=== PATIENT | female | born 1960 | race Caucasian/White ===

== ENCOUNTER 2017-10-21 06:17 | Inpatient (IN) ==
[~2017-10-21 06:17] MED LIST: Bacitracin 50,000 UNIT, Polymyxin B Sulfate 500,000 UNIT, Sodium Chloride IRRigation 1,... IR ONE
[2017-10-21] MEDS ORDERED: Clindamycin 900 MG/50 ML 900 MG/50 ML IV.SOLN IVPB ONE (06:30)
[2017-10-21] MEDS ORDERED: Albuterol 2.5 MG/3 ML NEBULIZER IH ONE (06:33)
[2017-10-21] MEDS ORDERED: Albuterol 2.5 MG/3 ML NEBULIZER ONE (06:35)
[2017-10-21] MEDS ORDERED: Ringers Solution, Lactated 1,000 ML IVC SCH (06:45)
[2017-10-21] MEDS ORDERED: Plasma-Lyte A (PH 7.4) 1,000 ML IVC SCH (06:45)
--- NOTE | 2017-10-21 06:58 | History & Physical Report ---
Date of Encounter: 10/21/17 Time of Encounter: 06:57 24 Hour HP Update - Instructions Instructions: If the History and Physical is less than 30 days old and was completed prior to A.M. admission and or procedure and has NOT been updated on calendar day of procedure please complete this update prior to performing procedure. - Update Patient reports changes in Medical Condition: No Changes in examination, assessment, or condition: No Changes in Medication: No Preop tests/diagnostics Reviewed: Yes Pre-Op MRSA Screen: Negative Surgery Remains Indicated: Yes Consent for Planned Operative Procedure(s) Verified: Yes - Pre-Operative Checklist Preoperative Checklist Indicated: No Prophylactic Antibiotic Ordered: Yes Home Medications Include Beta Vaishali: No Beta Vaishali Taken Today (Day of Surgery): No Beta Vaishali Taken Yesterday (Day Prior to Surgery): No Is VTE Prophylaxis Indicated?: Yes
[2017-10-21] MEDS ORDERED: Lidocaine -MPF 2% 2 ML VIAL ONE (07:16)
[2017-10-21] MEDS ORDERED: *HR* FentaNYL (PF) 100 MCG/2 ML VIAL ONE (07:16)
[2017-10-21] MEDS ORDERED: *HR* Propofol 200 MG/20 ML VIAL IVP ONE (07:16)
[2017-10-21] MEDS ORDERED: Dexamethasone 4 MG/ML VIAL ONE (07:16)
[2017-10-21] MEDS ORDERED: Ketorolac 30 MG/ML VIAL ONE (07:16)
[2017-10-21] MEDS ORDERED: *HR* Midazolam HCl 2 MG/2 ML VIAL ONE (07:16)
[2017-10-21] MEDS ORDERED: *HR* Rocuronium Bromide 50 MG/5 ML VIAL ONE (07:16)
[2017-10-21] MEDS ORDERED: Ondansetron 4 MG/2 ML VIAL ONE (07:16)
[2017-10-21] MEDS ORDERED: ALPRAZolam 1 MG TABLET PO ONE (07:19)
[2017-10-21] MEDS ORDERED: *HR* Methadone 10 MG TABLET PO ONE (07:19)
--- NOTE | 2017-10-21 07:34 | Anesthesia Evaluation PreOp ---
Date of Encounter: 10/21/17 Time of Encounter: 07:34 - Past History Planned Operation: PLIF L3-L5 Cardiac History: Denies any Significant Hx Pulmonary History: Smoker, COPD GRAY TENDER History: Denies Any Significant HX, Other (SEVERE ANXIETY, PANIC ATTACKS) Other Medical History: Denies Any Significant HX Anesthesia History: No Prior Anesthetic Complications, Past Anesthesia Alcohol Use: none Drug use: none Medications and Allergies ALPRAZolam [Xanax 1 MG Tablet] 1 mg PO QID PRN 12/13/15 [History] Budesonide/Formoterol 160/4.5 [Symbicort 160/4.5] 2 puff IH BIDR 12/13/15 [ History] Desmopressin Acetate [Ddavp] 0.2 mg PO DAILY 12/13/15 [History] Duloxetine HCl [Cymbalta] 90 mg PO DAILY 12/13/15 [History] Montelukast [Singulair] 10 mg PO DAILY 12/13/15 [History] Tiotropium [Spiriva] 18 mcg IH HS 12/13/15 [History] Albuterol Sulfate [Albuterol Inhaler] 2 puff IH Q4-6H PRN 10/21/17 [History] Amitriptyline [Elavil] 50 mg PO HS 10/21/17 [History] Aripiprazole [Abilify] 30 mg PO DAILY 10/21/17 [History] Gabapentin [Neurontin] 600 mg PO TID 10/21/17 [History] Mirabegron [Myrbetriq] 50 mg PO DAILY 10/21/17 [History] lamoTRIgine [Lamictal] 50 mg PO BID 10/21/17 [History] 3 Allergy/AdvReac Type Severity Reaction Status Date / Time cephalexin [From Keflex] Allergy Hives Verified 10/21/17 07:17 rizatriptan [From Maxalt] AdvReac Flushing Verified 10/21/17 07:17 sumatriptan [From Imitrex] AdvReac Flushing Verified 10/21/17 07:17 - Meds/Allergy Pre-op Review Medications Reviewed: Yes Allergies Reviewed: Yes Beta Blockers on Current Med List: No Anesthesia Results - Labs 10/13/2017: K 4.0 Cr 0.84 Hb 13.2 Plt 330 Anesthesia Exam O2 Sat Height 1.57 m Weight 62.142 kg BMI 25 Vital Signs Resp BP Pulse Ox 18 122/73 95 10/21/17 06:43 10/21/17 06:43 10/21/17 06:43 NPO (# of Hours): >8 - HEENT Mallampati: II Teeth: Edentulous Denture Type: Upper: Complete - GRAY TENDER LOC: Oriented (Anxious) - Cardiac Rhythm: Regular - Pulmonary Breath Sounds: bilateral Clear Anesthesia Assess/Plan ASA Score: 3 Modified Vadito Scale for Level of Consciousness: Anixous, agitated or restless Anesthetic Plan: General Monitoring Plan: Standard Monitors, A-Line (Possible) Recovery Plan: PACU Anes Supervising Prov Stmt: Patient informed and consented. Risks, benefits, and alternatives discussed. Patient wishes to proceed.
[2017-10-21] MEDS ORDERED: *HR* PHENYLEPHRINE 1,000 MCG/10 ML SYRINGE IVP ONE (08:00)
[2017-10-21] MEDS ORDERED: *HR* Phenylephrine 10 MG/ML VIAL ONE (09:32)
[2017-10-21] MEDS ORDERED: *HR* Morphine 10 MG/ML VIAL ONE (10:22)
[2017-10-21] MEDS ORDERED: *HR* FentaNYL (PF) 100 MCG/2 ML VIAL IVP PRN (10:25)
[2017-10-21] MEDS ORDERED: Albuterol 2.5 MG/3 ML NEBULIZER IH PRN (10:25)
[2017-10-21] MEDS ORDERED: *HR* Promethazine 25 MG/ML VIAL IVP PRN (10:25)
[2017-10-21] MEDS ORDERED: *HR* OxyCODONE Immed Rel 5 MG TABLET PO PRN (10:25)
[2017-10-21] MEDS ORDERED: *HR* Midazolam HCl 2 MG/2 ML VIAL IVP PRN (10:25)
[2017-10-21] MEDS ORDERED: Neostigmine Methylsulfate 3 MG/3 ML SYRINGE ONE (10:36)
--- NOTE | 2017-10-21 11:01 | Orthopedic Operative Note ---
Date of procedure: 10/21/17 Pre-op diagnosis: Lumbar stenosis, degenerative scoliosis, lumbar radiculopathy Post-op diagnosis: same Operation/Findings: Posterior lumbar interbody fusion L3-L5: The patient successfully underwent general endotracheal anesthesia. The patient was given antibiotics prior to the start of the procedure. Compression boots and stockings were used for deep vein thrombosis prophylaxis. A Mcdowell catheter was placed. Leads for neuro monitoring were placed on the upper and lower extremities. This included the cranium. The neuro monitoring personnel confirmed there were satisfactory readings prior to the start of the procedure. The patient was turned prone on the Renny table. The back was prepped and draped in the usual sterile fashion. An incision was was marked and centered over the involved L3-L5 levels in the mid line. The incision was deepened through the lumbar fascia. Bovie cautery and Hawthorne elevators were used to reflect the paraspinal musculature at the lateral extent of the transverse processes of the involved L3 -L5 levels. Yulissa clamps were placed over the L3 and L4 spinous processes. An intraoperative lateral fluoroscopy graft was obtained. A conversation was held between the surgeon and radiologist and both confirmed we had the correct operative levels. We then placed pedicle screws in standard fashion with the aid of fluoroscopy and anatomic landmarks. Briefly a starter awl was used. A gearshift was subsequently used to enter the test pilot hole via a transpedicular route into the vertebral body. The test pilot hole was tapped with an undersized instrument, and subsequently six 6.5 x 40 mm pedicle screws were placed bilaterally at the indicated L3, L4, and L5 levels. The screws were tested with the aid of the neurologic monitoring staff via pedicle screw stimulation. All reading suggested there was no significant cortical wall breech. The screws were also evaluated fluoro- graphically and appeared to be in satisfactory position. We then turned our attention to the decompression portion of the procedure. We removed the supraspinous and interspinous ligaments and subsequently the insertion of the ligamentum flavum on the undersurface of the proximal L4 lamina was dislodged with a curette. We then removed the ligamentum flavum as well as undercut the L4-L5 facets at this level to decompress the lateral recesses. We also performed a L4 laminectomy. We moved proximally to the L3-4 level and again decompressed this level by removing hypertrophied ligamentum flavum, undercutting the L3-4 facets, and performing an L3 laminectomy. After the decompression, which was over and above that which was required to place the interbody graft, the foramen and traversing roots at L3-4 and L4-5 levels were found to be free and patent. We also took part of the medial facets at these levels in order to aid in the decompression. We then protected the neural elements including the thecal sac and traversing nerve root on the right at L4-5 with a dural retractor. We made an annulotomy into the L4-L5 disc space and then removed entire disc material using Pituitary instruments. We trialed various size grafts after the endplates were prepared for graft insertion. A 10 x 26 enter body graft fit well within the L4-L5 disc space. We obtained some bone from the right posterior superior iliac spine through us a separate incision and combined with this with the bone which we had saved from the laminectomy of L3 and L4 portion of the procedure. This autograft bone was first placed in the anterior portion of the L4-L5 disc space and additional bone was placed within the interbody graft spacer. We then placed the interbody graft spacer obliquely across the L4-L5 disc space towards the midline while protecting the neural elements with a root retractor. When the graft was found to be in satisfactory position the binder caser was removed. We then copiously irrigated the wound. We then decorticated the L3, L4, and L5 transverse processes as well as the L3-4 and L4-5 facet joints of the involved levels to aid in the posterolateral fusion. We placed autograft bone in the lateral gutters over these regions. We then placed rods within the screw heads of the involved L3, L4, and L5 levels and first locked the distal screws and then subsequently locked the proximal screws so as to improve and reduce the spondylolisthesis previously seen. We then closed the wound in layers with 1 Vicryl for the fascia, 2-0 Vicryl. Subcutaneous tissue, and Dermabond was used for skin closure. Sterile dressings were placed over the wound. The patient was turned supine on a hospital bed and extubated. All sponge instruments and needle counts were correct at the end of the procedure. The patient tolerated the procedure well without complications. Anesthesia: GETA Surgeon: Alexey Stone Jr Was there an dental assistant medical assistant present: No Estimated blood loss (cc): 200 Specimen: None Condition: stable Disposition: PACU
[2017-10-21] MEDS ORDERED: Calcium Gluconate 2,000 MG in 0.9 % Sodium Chloride 100 ML IVPB ONE (11:57)
[2017-10-21] MEDS ORDERED: Naloxone 0.4 MG/ML INJ IVP PRN (12:31)
[2017-10-21] MEDS ORDERED: Ondansetron 4 MG/2 ML VIAL IVP PRN (12:31)
[2017-10-21] MEDS ORDERED: *HR* OxyCODONE Immed Rel 5 MG TABLET PO SCH (12:31)
--- NOTE | 2017-10-21 12:54 | Anesthesia Evaluation Post Op ---
Date of Encounter: 10/21/17 Time of Encounter: 12:35 Notes: Patient's vital signs have been reviewed. Patient is stable postoperatively and has adequately recovered from anesthesia. Patient is determined to have stable airway patency and respiratory function including respiratory rate and oxygen saturation. Patient has a stable heart rate, blood pressure and adequate hydration. Patients mental status is acceptable. Patients temperature is appropriate. Pain and nausea are adequately controlled. - Discharge PostOp Status: Transfer Patient to floor
[2017-10-21] MEDS: Ringers Solution, Lactated 1,000 ML IVC SCH (13:43)
[2017-10-21] MEDS: Clindamycin 600 MG/50 ML 600 MG/50 ML IV.SOLN IVPB SCH (15:07)
[2017-10-21] MEDS: ALPRAZolam 1 MG TABLET PO PRN (16:12)
[2017-10-21] MEDS: *HR* OxyCODONE Immed Rel 5 MG TABLET PO PRN (18:47)
[2017-10-21] MEDS: lamoTRIgine 25 MG TABLET PO SCH (20:04)
[2017-10-21] MEDS: Budesonide/Formoterol 160/4.5 MDI IH SCH (21:46)
[2017-10-22] MEDS: Clindamycin 600 MG/50 ML 600 MG/50 ML IV.SOLN IVPB SCH (00:52)
[2017-10-22] MEDS: *HR* OxyCODONE Immed Rel 5 MG TABLET PO PRN ×2 (00:52→06:09)
[2017-10-22] MEDS: Ringers Solution, Lactated 1,000 ML IVC SCH (00:53)
--- NOTE | 2017-10-22 08:11 | Orthopedics Progress Note ---
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 Stone for Lumbar stenosis, degenerative scoliosis, lumbar radiculopathy The patient c/o back pain. Admits to improvement in left leg symptoms. Notes weakness with right ankle motion. Admits to some numbness to both legs. Afebrile vital signs are stable. Incision is clean dry and intact. Mild weakness with dorsiflexion to right ankle otherwise, neurovascularly intact with regard to bilateral lower extremities. Fires all upper and lower extremity motor groups. Assessment :stable. Plan: mobilize with PT, continue analgesics, discharge planning - pending PT evaluation radiographs to be done tomorrow Objective Vital signs: Vital Signs Temp Pulse Resp BP Pulse Ox 10/22/17 06:46 98.2 F 101 16 103/68 95 10/22/17 04:14 98.6 F 108 14 100/61 93 10/22/17 00:32 98.1 F 101 17 113/77 92 10/21/17 21:50 16 96 10/21/17 21:10 98.4 F 111 16 104/59 94 10/21/17 20:09 93 10/21/17 19:28 98.9 F 112 16 95/54 93 10/21/17 16:10 97.9 F 125 15 101/61 91 10/21/17 15:02 98.3 F 110 15 100/67 96 10/21/17 13:44 98.0 F 108 12 91/58 95 10/21/17 13:10 98.3 F 116 15 107/70 95 10/21/17 12:40 98.3 F 115 14 105/68 96 04/24/18 12:29 97.1 F L 116 16 99/71 93 10/21/17 12:19 120 16 103/72 93 10/21/17 12:09 97.3 F L 122 16 107/79 93 10/21/17 11:59 124 16 109/69 95 10/21/17 11:49 123 16 115/71 94 10/21/17 11:39 97.3 F L 128 16 119/81 94 10/21/17 11:29 130 16 100/62 96 10/21/17 11:19 96 12 98/66 99 10/21/17 11:09 96.8 F L 95 12 91/57 99 Intake and Output 10/21/17 10/22/17 10/22/17 23:59 07:59 15:59 Intake Total 1000 / 1000 0 / 0 Output Total 400 / 400 400 / 400 Balance 600 / 600 -400 / -400 Intake: IV Fluids 1000 / 1000 Lactated Ringers 1,000 ML @ 100 1000 / 1000 mls/hr IVC .Q10H JAY Rx#: [id number] Oral 0 / 0 Output: Catheter 400 / 400 400 / 400 - VTE Documentation of Mechanical Device: Intermittent pneumatic compression device Consult Discharge Plan - Plan Referrals: Soheila Newell, PhD [Primary Care Provider] -
[2017-10-22] MEDS: *HR* HYDROcodone/Acet 5/325 mg TABLET PO PRN ×3 (08:40→17:55)
[2017-10-22] MEDS: lamoTRIgine 25 MG TABLET PO SCH ×2 (08:41→20:27)
[2017-10-22] MEDS: ARIPiprazole 10 MG TABLET PO SCH (08:41)
[2017-10-22] MEDS: (Mirabegron [Myrbetriq] 50 MG) PO SCH (08:41)
[2017-10-22] MEDS: Budesonide/Formoterol 160/4.5 MDI IH SCH ×2 (09:40→23:04)
[2017-10-22] MEDS: Tiotropium 18 MCG inhalation IH SCH (09:41)
[2017-10-22] MEDS: ALPRAZolam 1 MG TABLET PO PRN ×2 (11:13→19:14)
[2017-10-23] MEDS: *HR* OxyCODONE Immed Rel 5 MG TABLET PO PRN ×5 (01:01→20:50)
[2017-10-23] MEDS: ARIPiprazole 10 MG TABLET PO SCH (07:23)
[2017-10-23] MEDS: lamoTRIgine 25 MG TABLET PO SCH ×2 (07:24→20:50)
[2017-10-23] MEDS: (Mirabegron [Myrbetriq] 50 MG) PO SCH (07:24)
[2017-10-23] MEDS: ALPRAZolam 1 MG TABLET PO PRN (07:30)
[2017-10-23] MEDS: Budesonide/Formoterol 160/4.5 MDI IH SCH ×2 (07:54→20:26)
[2017-10-23] MEDS: Tiotropium 18 MCG inhalation IH SCH (07:54)
--- NOTE | 2017-10-23 12:34 | Orthopedics Progress Note ---
Date of Encounter: 10/23/17 Time of Encounter: 08:35 - Assessment and Plan (1) Status post lumbar spinal fusion Current Visit: Yes Status: Acute (2) Lumbar stenosis Current Visit: Yes Status: Chronic Qualifiers: Neurogenic claudication status: unspecified Qualified Code(s): M48.061 - Spinal stenosis, lumbar region without neurogenic claudication (3) Lumbar radiculopathy Current Visit: Yes Status: Chronic (4) Degenerative scoliosis Current Visit: Yes Status: Chronic (5) Focal motor deficit Current Visit: Yes Status: Chronic (6) History of laminectomy Current Visit: Yes Status: Chronic Subjective Principal diagnosis: Lumbar stenosis, degenerative scoliosis, lumbar radiculopathy Interval history: POD#2 Posterior lumbar interbody fusion L3-L5 on 10/21/[address] Stone for Lumbar stenosis, degenerative scoliosis, lumbar radiculopathy The patient c/o back pain. Admits to improvement in left leg symptoms. Notes weakness with right ankle motion - improved from yesterday, now full ROM, mild weakness continues to be noted. Admits to some numbness to both legs - states much improved today. Afebrile vital signs are stable. Incision is clean dry and intact. Mild weakness with dorsiflexion to right ankle otherwise, neurovascularly intact with regard to bilateral lower extremities. Fires all upper and lower extremity motor groups. Assessment :stable. Plan: mobilize with PT, continue analgesics as needed, discharge planning - Home with home health tomorrow 10/24 radiographs reviewed - stable and satisfactory hardware position Objective Vital signs: Vital Signs Temp Pulse Resp BP Pulse Ox 10/23/17 10:02 98.4 F 104 16 104/67 94 10/23/17 07:57 18 93 10/23/17 06:29 98.9 F 110 16 101/68 94 10/23/17 04:48 100.1 F H 122 17 99/64 93 10/23/17 00:09 99.9 F H 125 17 99/65 93 10/22/17 23:04 24 93 10/22/17 21:09 112 95 10/22/17 19:04 99.2 F 120 17 103/63 96 10/22/17 14:29 98.3 F 86 16 121/68 95 Intake and Output 10/22/17 10/23/17 10/23/17 23:59 07:59 15:59 Intake Total 290 / 290 360 / 360 240 / 240 Output Total 400 / 400 Balance -110 / -110 360 / 360 240 / 240 Intake: Oral 290 / 290 360 / 360 240 / 240 Output: Urine 400 / 400 Other: Meal Dinner Breakfast Percent of Meal Consumed 50% 50% # Urine Diapers 1 1 Weight 66.8 kg Patient Weight 10/23/17 23:59 Weight 66.8 kg - VTE Documentation of Mechanical Device: Intermittent pneumatic compression device Consult Discharge Plan - Plan Referrals: Soheila Newell, PhD [Primary Care Provider] -
[2017-10-23] MEDS: Acetaminophen 325 MG TABLET PO PRN (20:49)
[2017-10-24] MEDS: *HR* OxyCODONE Immed Rel 5 MG TABLET PO PRN ×4 (01:11→20:45)
[2017-10-24] MEDS: Budesonide/Formoterol 160/4.5 MDI IH SCH ×2 (07:59→20:57)
[2017-10-24] MEDS: Tiotropium 18 MCG inhalation IH SCH (08:00)
--- NOTE | 2017-10-24 08:56 | Discharge Summary ---
Orders not resulted at time of discharge: Pending orders 10/21/17 08:30 XR fluoroscopy <1 hr [XR] Routine 10/24/17 08:01 XR lumbar spine 2-3V [XR] Routine Date of Encounter: 10/24/17 Time of Encounter: 08:54 - Discharge Diagnosis (1) Status post lumbar spinal fusion Priority: Primary Status: Acute (2) Lumbar stenosis Priority: Primary Status: Chronic Qualifiers: Neurogenic claudication status: unspecified Qualified Code(s): M48.061 - Spinal stenosis, lumbar region without neurogenic claudication (3) Lumbar radiculopathy Priority: Secondary Status: Chronic (4) Degenerative scoliosis Priority: Secondary Status: Chronic (5) Focal motor deficit Priority: Secondary Status: Chronic (6) History of laminectomy Priority: Secondary Status: Chronic - Hospital Course Hospital course: Ms. Clay is a 56 year old female status post posterior lumbar interbody fusion L3-L5 on 10/21/[address] Stone for Lumbar stenosis, degenerative scoliosis, lumbar radiculopathy The patient had an uneventful postoperative course. Progressed from intravenous analgesic needs to oral analgesic needs only. Remained neurovascularly intact and mobilized satisfactorily. All intraoperative and postoperative radiographic studies were satisfactory. Patient is discharged with plan for rehabilitation and follow-up in 2 weeks post discharge on analgesic medication and patient's home medications. Time spent discussing smoking cessation with patient: 3 to 10 minutes - Time Spent with Patient Total time spent providing and/or coordinating discharge services: - Discharge Medications Prescriptions: OxyCODONE Immed Rel [Roxicodone 5 MG] 5 mg PO Q6H PRN 7 Days #28 tablet PRN Reason: Severe Pain Home Medications: ALPRAZolam [Xanax 1 MG Tablet] 1 mg PO TID PRN 12/13/15 [History] Budesonide/Formoterol 160/4.5 [Symbicort 160/4.5] 2 puff IH BIDR 12/13/15 [ History] Desmopressin Acetate [Ddavp] 0.4 mg PO HS 12/13/15 [History] Duloxetine HCl [Cymbalta] 60 mg PO DAILY 12/13/15 [History] Montelukast [Singulair] 10 mg PO DAILY 12/13/15 [History] Tiotropium [Spiriva] 18 mcg IH DAILY 12/13/15 [History] Albuterol Sulfate [Albuterol Inhaler] 2 puff IH Q4-6H PRN 10/21/17 [History] Amitriptyline [Elavil] 50 mg PO HS 10/21/17 [History] Aripiprazole [Abilify] 30 mg PO DAILY 10/21/17 [History] Gabapentin [Neurontin] 600 mg PO TID 10/21/17 [History] Mirabegron [Myrbetriq] 50 mg PO DAILY 10/21/17 [History] lamoTRIgine [Lamictal] 50 mg PO BID 10/21/17 [History] OxyCODONE Immed Rel [Roxicodone 5 MG] 5 mg PO Q6H PRN 7 Days #28 tablet [Rx] Allergies/Adverse Reactions: 3 Allergy/AdvReac Type Severity Reaction Status Date / Time cephalexin [From Keflex] Allergy Hives Verified 10/21/17 07:17 rizatriptan [From Maxalt] AdvReac Flushing Verified 10/21/17 07:17 sumatriptan [From Imitrex] AdvReac Flushing Verified 10/21/17 07:17 Date of admission: 10/21/17 13:42 Primary care physician: Soheila Newell Consults: 10/21/17 12:31 Consult to Occupational Therapy [CONS] Routine Comment: Evaluate, develop and implement POC Reason for Consult: Postoperative rehabilitation Does patient have active BEDREST order?: No Is patient medically & hemodynamically stable?: Yes Patient assessed for mobility or mobilized this visit?: No Consult to Physical Therapy [CONS] Routine Comment: Evaluate, develop and implement POC Reason for Consult: Postoperative rehabilitation Does patient have active BEDREST order?: No Is patient medically & hemodynamically stable?: Yes Patient assessed for mobility or mobilized this visit?: No Consult to Spine Navigator [CONS] [CONS] Routine 10/22/17 12:45 Consult to Space Sciences Director [CONS] Routine Reason for SW Consult: discharge planning - VTE Documentation of Mechanical Device: Intermittent pneumatic compression device - Impressions ITS Impressions Lumbar Spine X-Ray 10/21/17 08:30 IMPRESSION: Postoperative changes status post L3-L5 fusion. D/ / Santana Roland / Santana Roland Interpreting Provider: Santana Roland Lumbar Spine X-Ray 10/22/17 12:55 IMPRESSION: L3, L4-L5 laminectomies, L4-5 discectomy with spacer and L3-5 transpedicular spinal fixation unchanged compared with yesterday's radiograph. D/ / Abelardo De León / Abelardo De León Interpreting Provider: Abelardo De León - Patient Status Disposition: Home Health Service Condition: Good Functional capacity at discharge: uses cane/walker Overall status at discharge: patient is progressing back to baseline - Discharge Instructions Follow Up With: Soheila Newell, PhD [Primary Care Provider] - Amina Quintanilla PAC [Physician Nocturnist] - 11/04/17 11:15 am - Diet and Activity Activity: as per physical therapy Diet: advance to your usual diet
[2017-10-24] MEDS: ARIPiprazole 10 MG TABLET PO SCH (09:13)
[2017-10-24] MEDS: lamoTRIgine 25 MG TABLET PO SCH ×2 (09:14→20:46)
[2017-10-24] MEDS: (Mirabegron [Myrbetriq] 50 MG) PO SCH (09:15)
[2017-10-24] MEDS: ALPRAZolam 1 MG TABLET PO PRN (12:13)
[2017-10-24 13:08] LABS: Basophils % 0.3 %; Eosinophils # 0.3 K/mcL (0.0-0.6); Eosinophils % 2.7 %; Hematocrit 29.6 % (35.3-44.9); Hemoglobin 10.2 g/dL (11.5-15.4); Immature Granulocytes % 0.3 % (0-4); Lymphocytes # 1.7 K/mcL (0.6-4.6); Lymphocytes % 17.1 %; Mean Corpuscular HGB Conc 34.5 g/dL (31.6-35.5); Mean Corpuscular Hemoglobin 30.2 pg (28.0-33.3); Mean Corpuscular Volume 87.6 fL (83.0-100.0); Monocytes % 10.6 %; Neutrophils # 6.7 K/mcL (1.6-8.9); Platelet Count 292 K/mcL (140-400); Red Blood Count 3.38 M/mcL (3.82-4.97); Red Cell Distribution Width 14.3 % (11.5-14.5)
[2017-10-24 13:25] LABS: BUN/Creatinine Ratio 11 (6-26); Blood Urea Nitrogen 6 mg/dL (6-20); Calcium 8.7 mg/dL (8.6-10.3); Carbon Dioxide 27 mEq/L (23-29); Chloride 98 mEq/L (98-107); Glucose 104 mg/dL (70-105); Osmolality,Calculated 270 (280-300); Potassium 3.5 mEq/L (3.5-5.1); Sodium 131 mEq/L (136-145); eGFR For African Americans > 60 (> 60); eGFR For Non-African Americans > 60 (> 60)
[2017-10-24] MEDS ORDERED: Ibuprofen 600 MG TABLET PO PRN (16:51)
[2017-10-24] MEDS ORDERED: Ipratropium/Albuterol Neb 3 ML IH PRN (16:52)
--- NOTE | 2017-10-24 17:17 | Internal Medicine Consult Note ---
<Jacoby Leon - Last Filed: 10/24/17 17:54> Date of Encounter: 10/24/17 Time of Encounter: 16:30 - Assessment and plan (1) Tachycardia Current Visit: Yes Status: Acute Assessment and plan: Acute tachycardia. EKG shows electronic atrial pacemaker with incomplete RBBB and moderate ST depression. Continuous cardiac telemetry. Patient receiving 0.9 NS IV fluids 75 mL per hour. Will monitor via telemetry. Monitor fever and control w/Tylenol and Motrin. Pt. discussed w/Dr. Aaron who agrees w/plan of care. Pt. is moderate risk for further morbidity and complications d/t post- surgical status and sx of fever, tachycardia, and HTN. Pt. and f/u labs to be monitored closely. Inpatient. (2) Fever Current Visit: Yes Status: Acute Assessment and plan: Acute fever that is transient. Alternate Tylenol and Motrin for fever control. Blood cultures 2 ordered. Respiratory infection panel ordered. UA with reflex culture and micro-ordered. Will add abx coverage based on culture and panel results if appropriate. Qualifiers: Fever type: unspecified Qualified Code(s): R50.9 - Fever, unspecified (3) HTN (hypertension) Current Visit: Yes Status: Acute Assessment and plan: Acute HTN that is transient. Pt. does not currently take HTN medication. Hydralazine 10 mg IV push every 6 hours when necessary to be administered if SBP greater than 180 and/or DBP greater than 110. Qualifiers: Hypertension type: unspecified Qualified Code(s): I10 - Essential (primary ) hypertension (4) Status post lumbar spinal fusion Current Visit: Yes Status: Acute Assessment and plan: Acute status post-lumbar spinal fusion. Pt. to have f/u w/Dr. Stone. (5) Anemia Current Visit: Yes Status: Acute Assessment and plan: Acute anemia most likely d/t recent surgery. Will trend H/H Q6HR. Qualifiers: Anemia type: unspecified type Qualified Code(s): D64.9 - Anemia, unspecified (6) Hyponatremia Current Visit: Yes Status: Acute Assessment and plan: Acute hyponatremia w/sodium of 131. 0.9 NS IV fluids @ 75 mL/HR. Re-check sodium in a.m. labs. (7) Constipation Current Visit: Yes Status: Acute Assessment and plan: Acute constipation d/t pain medications. Colace and Miralax ordered. Monitor I& O. Qualifiers: Constipation type: drug induced constipation Qualified Code(s): K59.03 - Drug induced constipation (8) Overactive bladder Current Visit: Yes Status: Chronic Assessment and plan: Hx of overactive bladder. Continue pts. Myrbetriq. (9) Anxiety and depression Current Visit: Yes Status: Chronic Assessment and plan: Hx of chronic anxiety and depression. Continue patient's Lamictal, Cymbalta, Abilify, Elavil, and Xanax. (10) COPD (chronic obstructive pulmonary disease) Current Visit: Yes Status: Chronic Assessment and plan: Hx of chronic COPD w/asthma. Continue patient's inhalers and add DuoNeb's every 6 hours when necessary. Supplemental O2 with titration and SPO2 monitoring when necessary. Qualifiers: COPD type: emphysema Emphysema type: unspecified Qualified Code(s): J43.9 - Emphysema, unspecified (11) DVT prophylaxis Current Visit: Yes Status: Acute Assessment and plan: Bilateral SCDs on LEs for DVT prophylaxis. - Time Spent With Patient Total time spent is greater than 50% in coordination of care (as documented) at patient's floor/unit and/or counseling patient: 25 - 35 minutes Internal Medicine - CN: HPI - Data of Consult Patient: new to practice Requesting Physician: Alexey Stone Jr MD - Consult Narrative Reason for consult: Medical mgmt of fever, tachycardia, and HTN post-lumbar spinal fusion History of present illness: Ms. Clay is a 56 year old female w/PMH of COPD, overactive bladder, anxiety, and depression presents for Hospitalist consultation post-lumbar spinal fusion due to symptoms of tachycardia, hypertension, and fever which began yesterday, resolved, and returned again this morning. WBC 9.7. Patient reports SOB and constipation from pain medications but that she has no nausea, vomiting, diarrhea. Also denies headache, chest pain, changes in vision, palpitations, unusual bleeding, abdominal pain, dizziness, lightheadedness, pre-syncope, or syncope. Reports pain post-procedure but state that she has been ambulating and this is nothing she can't handle. Past Med Surg Social Fam HX - Past Medical History Source: patient, old records reviewed Medical history: asthma, COPD, other (Overactive bladder) Psychiatric history: anxiety, depression - Past Surgical History Surgical History: orthopedic, other (Lumbar spine fusion), other - Social History Smoking Status: Current every day smoker Packs per day: 1/2 Smokeless Tobacco Status: No Alcohol use: none Drug use: none Current living situation: Home Activity Level: Independent ambulation Recent Out of Country Travel Within the Last 8 Weeks: No Exposure or Possible Exposure to Illness During Travel: No - Family History Father History Unknown: Yes Adopted: Yes Mother History Unknown: Yes Adopted: Yes Brother Race: Family Member Ethnicity: Non- Living Status: Still Living Hx Family Medical Disorders: No Sister Race: Family Member Ethnicity: Non- Living Status: Still Living Hx Family Medical Disorders: No - Constitutional Constitutional: as per HPI, fever(s) - EENT Eyes: as per HPI Ears: as per HPI Nose, mouth and throat: as per HPI - Breasts Breasts: as per HPI - Cardiovascular Cardiovascular ROS IM: as per HPI, irregular heart rhythm (Tachycardia) - Respiratory Respiratory: as per HPI, dyspnea, dyspnea on exertion - Gastrointestinal Gastrointestinal: as per HPI, constipation - Genitourinary Genitourinary: as per HPI, urinary frequency Menstruation: as per HPI - Musculoskeletal Musculoskeletal ROS IM: as per HPI, back pain - Integumentary Integumentary IM: as per HPI - Neurological Neurological ROS: as per HPI - Psychiatric Psychiatric: as per HPI, anxiety, depression - Endocrine Endocrine IM: as per HPI - Hematologic/Lymphatic Hematologic/Lymphatic: as per HPI - Allergic/Immunologic Allergic/Immunologic: as per HPI Internal Medicine - CN: Meds ALPRAZolam [Xanax 1 MG Tablet] 1 mg PO TID PRN 12/13/15 [History] Budesonide/Formoterol 160/4.5 [Symbicort 160/4.5] 2 puff IH BIDR 12/13/15 [ History] Desmopressin Acetate [Ddavp] 0.4 mg PO HS 12/13/15 [History] Duloxetine HCl [Cymbalta] 60 mg PO DAILY 12/13/15 [History] Montelukast [Singulair] 10 mg PO DAILY 12/13/15 [History] Tiotropium [Spiriva] 18 mcg IH DAILY 12/13/15 [History] Albuterol Sulfate [Albuterol Inhaler] 2 puff IH Q4-6H PRN 10/21/17 [History] Amitriptyline [Elavil] 50 mg PO HS 10/21/17 [History] Aripiprazole [Abilify] 30 mg PO DAILY 10/21/17 [History] Gabapentin [Neurontin] 600 mg PO TID 10/21/17 [History] Mirabegron [Myrbetriq] 50 mg PO DAILY 10/21/17 [History] lamoTRIgine [Lamictal] 50 mg PO BID 10/21/17 [History] OxyCODONE Immed Rel [Roxicodone 5 MG] 5 mg PO Q6H PRN 7 Days #28 tablet [Rx] 3 Allergy/AdvReac Type Severity Reaction Status Date / Time cephalexin [From Keflex] Allergy Hives Verified 10/21/17 07:17 rizatriptan [From Maxalt] AdvReac [place]ushing Verified 10/21/17 07:17 sumatriptan [From Imitrex] AdvReac [place] Verified 10/21/17 07:17 Internal Medicine - CN: Exam - Constitutional Vitals: Temp Pulse Resp BP Pulse Ox 99.9 F H 109 18 106/67 93 10/24/17 16:18 10/24/17 16:18 10/24/17 16:18 10/24/17 16:18 10/24/17 16:18 General appearance IM: Present: cooperative, A&O X 3, pleasant, no acute distress, answers questions appropriately - Head Head exam: Present: atraumatic, normal inspection - Eye Eye exam: Present: PERRL, conjuntiva pink, sclera anicteric Pupils: Present: normal accommodation, PERRL - ENT ENT exam: Present: normal exam - Neck Neck exam general surgery: Present: normal inspection - Respiratory Respiratory exam: Present: CTAB - Cardiovascular Cardiovascular exam IM: Present: +S1, +S2, tachycardia - GI/Abdominal GI/Abdominal exam IM: Present: diminished bowel sounds, soft, no peritoneal signs - Rectal Rectal exam: Present: deferred - Additional comments: exam deferred. - Extremities Exam Extremities exam IM: Present: warm, radial pulses palpable and symmetrical - Neurological Exam Neurological exam: Present: alert, oriented X3, no focal deficits, strengths equal and symetr throughout - Psychiatric Psychiatric exam: Present: normal affect, normal mood - Skin Skin exam IM: Present: dry, intact Internal Medicine - CN: Reslt - Labs CBC & Chem 7: 10/24/17 17:08 10/24/17 12:46 Labs: Short CBC 10/24/17 Range/Units 12:46 WBC 9.7 (4.3-11.1) K/mcL Hgb 10.2 L (11.5-15.4) g/dL Hct 29.6 L (35.3-44.9) % Plt Count 292 (140-400) K/mcL Neutrophils # 6.7 (1.6-8.9) K/mcL BMP 10/24/17 12:46 Sodium 131 L Potassium 3.5 Chloride 98 Carbon Dioxide 27 BUN 6 Creatinine 0.56 L Glucose 104 Calcium 8.7 - EKG Data Prior EKG available for review: no EKG comments: 10/24/17 17:31 EKG dated 10/24/17 shows electronic atrial pacemaker, incomplete right bundle branch block, and moderate ST depression. - Impressions Impressions Lumbar Spine X-Ray 10/24/17 08:01 IMPRESSION: Stable alignment status post L3-L5 posterior fusion. No evidence of complication. D/ / Rainer Beck MD / Rainer Beck MD Interpreting Provider: Rainer Beck MD Chest X-Ray 10/24/17 11:53 IMPRESSION: Bibasilar airspace opacities, either secondary to atelectasis or pneumonia. D/ / Rainer Beck MD / Rainer Beck MD Interpreting Provider: Rainer Beck MD - Diagnostic Studies Chest x-ray Additional comments: Impressions Chest X-Ray 10/24/17 11:53 IMPRESSION: Bibasilar airspace opacities, either secondary to atelectasis or pneumonia. D/ / Rainer Beck MD / Rainer Beck MD Interpreting Provider: Rainer Beck MD Other Images Additional comments: Impressions Lumbar Spine X-Ray 10/24/17 08:01 IMPRESSION: Stable alignment status post L3-L5 posterior fusion. No evidence of complication. D/ / Rainer Beck MD / Rainer Beck MD Interpreting Provider: Rainer Beck MD Consult Discharge Plan - Plan Referrals: Amina Quintanilla PAC [Physician Liquid Sugar Fortifier] - 11/04/17 11:15 am Soheila Newell, PhD [Primary Care Provider] - Prescriptions: OxyCODONE Immed Rel [Roxicodone 5 MG] 5 mg PO Q6H PRN 7 Days #28 tablet PRN Reason: Severe Pain <Sharee Aaron O - Last Filed: 10/24/17 18:22> Date of Encounter: 10/24/17 - Time Spent With Patient Total time spent is greater than 50% in coordination of care (as documented) at patient's floor/unit and/or counseling patient: Internal Medicine - CN: HPI - Data of Consult Requesting Physician: Alexey Stone Jr MD - Consult Narrative History of present illness: Ms. Clay is a 56 year old female Internal Medicine - CN: Exam - Constitutional Vitals: Temp Pulse Resp BP Pulse Ox 99.9 F H 109 18 106/67 93 10/24/17 16:18 10/24/17 16:18 10/24/17 16:18 10/24/17 16:18 10/24/17 16:18 Internal Medicine - CN: Reslt - Labs CBC & Chem 7: 10/24/17 17:08 10/24/17 12:46 Labs: Short CBC 10/24/17 10/24/17 Range/Units 12:46 17:08 WBC 9.7 (4.3-11.1) K/mcL Hgb 10.2 L 9.4 L (11.5-15.4) g/dL Hct 29.6 L 27.5 L (35.3-44.9) % Plt Count 292 (140-400) K/mcL Neutrophils # 6.7 (1.6-8.9) K/mcL BMP 10/24/17 12:46 Sodium 131 L Potassium 3.5 Chloride 98 Carbon Dioxide 27 BUN 6 Creatinine 0.56 L Glucose 104 Calcium 8.7 - Impressions Impressions Lumbar Spine X-Ray 10/24/17 08:01 IMPRESSION: Stable alignment status post L3-L5 posterior fusion. No evidence of complication. D/ / Rainer Beck MD / Rainer Beck MD Interpreting Provider: Rainer Beck MD Chest X-Ray 10/24/17 11:53
[2017-10-24 17:22] LABS: Hematocrit 27.5 % (35.3-44.9); Hemoglobin 9.4 g/dL (11.5-15.4)
--- NOTE | 2017-10-24 18:26 | Electrocardiograph Report ---
[address] [address] Test Date: 2017-10-21 Pat Name: Missy Clay Department: 114 Room: [facility] Gender: F Range Technician: JJG : 1960 Requested By: Alexey Stone Order Number: [id number] Reading MD: Giana Goldsmith Measurements Intervals [place] Rate: 114 P: [place]: 366 QRS: -31 QRSD: 91 T: 20 QT: 307 QTc: 375 Interpretive Statements Sinus tachycardia Electronically Signed On 10-24-2017 18:25:08 EDT by Giana Goldsmith
[2017-10-24] MEDS: 0.9 % Sodium Chloride 1,000 ML IVC SCH (18:38)
[2017-10-24 18:51] LABS: Bilirubin,Urine Negative (Negative); Blood,Urine Negative (Negative); Clarity,Urine Cloudy (Clear); Color,Urine Yellow (Yellow); Glucose,Urine (UA) Normal (Normal); Ketones,Urine 15 mg/dL (Negative); Leukocyte Esterase,Urine Negative (Negative); Nitrite,Urine Negative (Negative); Protein,Urine Negative (Neg-Trace); Urobilinogen,Urine Normal (Normal)
[2017-10-24 18:52] LABS: Bacteria,Urine None Seen per hpf (None-Few); Hyaline Casts,Urine None Seen per lpf (None-Few); Squamous Epithelial Cell,Urine Moderate per lpf (None-Few); WBC,Urine 0-3 per hpf (0-3)
[2017-10-24 20:19] LABS: Adenovirus Not Detected (Not Detect); Bordetella Pertussis Not Detected (Not Detect); Chlamydophila pneumoniae Not Detected (Not Detect); Coronavirus 229E Not Detected (Not Detect); Coronavirus HKU1 Not Detected (Not Detect); Coronavirus NL63 Not Detected (Not Detect); Coronavirus OC43 Not Detected (Not Detect); Human Metapneumovirus Not Detected (Not Detect); Human Rhinovirus/Enterovirus Not Detected (Not Detect); Influenza A Subtype 2009 H1 Not Detected (Not Detect); Influenza A Untypeable Not Detected (Not Detect); Influenza B Not Detected (Not Detect); Mycoplasma pneumoniae Not Detected (Not Detect); Parainfluenza Virus 1 Not Detected (Not Detect); Parainfluenza Virus 2 Not Detected (Not Detect); Parainfluenza Virus 3 Not Detected (Not Detect); Parainfluenza Virus 4 Not Detected (Not Detect); Respiratory Syncytial Virus Not Detected (Not Detect)
[2017-10-24 23:05] LABS: Hematocrit 24.5 % (35.3-44.9); Hemoglobin 8.6 g/dL (11.5-15.4)
[2017-10-25 01:38] LABS: Basophils % 0.3 %; Eosinophils # 0.3 K/mcL (0.0-0.6); Eosinophils % 4.5 %; Hematocrit 24.9 % (35.3-44.9); Hemoglobin 8.5 g/dL (11.5-15.4); Immature Granulocytes % 0.3 % (0-4); Lymphocytes # 1.5 K/mcL (0.6-4.6); Lymphocytes % 20.1 %; Mean Corpuscular HGB Conc 34.1 g/dL (31.6-35.5); Mean Corpuscular Hemoglobin 29.9 pg (28.0-33.3); Mean Corpuscular Volume 87.7 fL (83.0-100.0); Mean Platelet Volume 10.3 fL (9.4-12.4); Monocytes % 13.5 %; Neutrophils # 4.7 K/mcL (1.6-8.9); Platelet Count 269 K/mcL (140-400); Red Blood Count 2.84 M/mcL (3.82-4.97); Segmented Neutrophils % 61.3 %
[2017-10-25 01:59] LABS: Alanine Aminotransferase 16 Units/L (7-52); Albumin/Globulin Ratio 1.3 (1.1-2.2); Alkaline Phosphatase 84 Units/L (34-104); Aspartate Amino Transferase 20 Units/L (13-39); BUN/Creatinine Ratio 11 (6-26); Bilirubin,Total 0.5 mg/dL (0.3-1.0); Blood Urea Nitrogen 6 mg/dL (6-20); Calcium 8.1 mg/dL (8.6-10.3); Carbon Dioxide 25 mEq/L (23-29); Chloride 103 mEq/L (98-107); Globulin 2.3 g/dL (2.4-3.5); Glucose 140 mg/dL (70-105); Osmolality,Calculated 278 (280-300); Potassium 3.4 mEq/L (3.5-5.1); Sodium 134 mEq/L (136-145); Total Protein 5.3 g/dL (6.4-8.9); eGFR For African Americans > 60 (> 60); eGFR For Non-African Americans > 60 (> 60)
[2017-10-25] MEDS: *HR* OxyCODONE Immed Rel 5 MG TABLET PO PRN ×3 (02:26→15:35)
[2017-10-25] MEDS: Acetaminophen 325 MG TABLET PO PRN (02:26)
[2017-10-25] MEDS: 0.9 % Sodium Chloride 1,000 ML IVC SCH (04:11)
[2017-10-25] MEDS: lamoTRIgine 25 MG TABLET PO SCH (08:24)
[2017-10-25] MEDS: ARIPiprazole 10 MG TABLET PO SCH (08:24)
[2017-10-25] MEDS: Budesonide/Formoterol 160/4.5 MDI IH SCH (08:36)
[2017-10-25] MEDS: Tiotropium 18 MCG inhalation IH SCH (08:36)
[2017-10-25] MEDS ORDERED: 0.9 % Sodium Chloride 500 ML IVC ONE (08:48)
--- NOTE | 2017-10-25 08:53 | Internal Med Progress Note ---
<Jaden Faust - Last Filed: 10/25/17 15:16> Date of Encounter: 10/25/17 Time of Encounter: 08:51 - Assessment and plan (1) Status post lumbar spinal fusion Current Visit: Yes Status: Acute Assessment and plan: Acute status post-lumbar spinal fusion. Pt. to have f/u w/Dr. Stone. -- Associated plans per ortho team (2) Fever Current Visit: Yes Status: Acute Assessment and plan: Acute fever that is transient and has peaked at 101.0 F. Currently afebrile. Has h/o COPD. Associated acute shortness of breath. Wells score = 3 for heart rate and postop state. PERC positive based on age. No pedal edema or skin color change to suggest possible acute DVT. Has been immobile in pre-op period. DDx: surg site infx (unlikely) vs atelectasis vs VTE vs COPD Exacerbation c/ bronchitis Surgical wound has been without signs of infection since date of procedure CXR demonstrates bibasilar airspace opacity suggestive of atelectasis versus pneumonia Blood cultures 2 pending Respiratory infection panel negative UA negative with no indication for culture Will add abx coverage based on culture and panel results if appropriate Cannot rule low risk for PE with Wells/PERC; so will obtain CTA Pt has 40 pack year history of smoking and cessation counseled. Was wheezing on exam, so game one time breathing treatment despite no acute subjective shortness of breath Started short prednisone burst Gave single bolus of NS 500mL which did not improve tachycardia Qualifiers: Fever type: unspecified Qualified Code(s): R50.9 - Fever, unspecified (3) Tachycardia Current Visit: Yes Status: Acute Assessment and plan: Has been tachycardic throughout admission; plans as above. (4) COPD (chronic obstructive pulmonary disease) Current Visit: Yes Status: Chronic Assessment and plan: Hx of chronic COPD w/asthma. Current smoker with 40 pack year history. Counseled cessation. Possible acute exacerbation; plans as above. Qualifiers: COPD type: emphysema Emphysema type: unspecified Qualified Code(s): J43.9 - Emphysema, unspecified (5) HTN (hypertension) Current Visit: Yes Status: Acute Assessment and plan: Acute HTN that is transient. Pt does not currently take HTN medication. Hydralazine PRN. Qualifiers: Hypertension type: unspecified Qualified Code(s): I10 - Essential (primary ) hypertension (6) Anemia Current Visit: Yes Status: Acute Assessment and plan: Acute anemia most likely d/t recent surgery. Hgb stable this AM. Qualifiers: Anemia type: unspecified type Qualified Code(s): D64.9 - Anemia, unspecified (7) Hyponatremia Current Visit: Yes Status: Acute Assessment and plan: Acute hyponatremia w/sodium of 131. 0.9 NS IV fluids @ 75 mL/HR. Improved. No associated symptoms. (8) Overactive bladder Current Visit: Yes Status: Chronic Assessment and plan: Continue pts. Myrbetriq. (9) Anxiety and depression Current Visit: Yes Status: Chronic Assessment and plan: Continue patient's Lamictal, Cymbalta, Abilify, Elavil, and Xanax. (10) DVT prophylaxis Current Visit: Yes Status: Acute Assessment and plan: Bilateral SCDs (11) Constipation Current Visit: Yes Status: Acute Assessment and plan: Acute constipation d/t pain medications. Colace and Miralax ordered. Qualifiers: Constipation type: drug induced constipation Qualified Code(s): K59.03 - Drug induced constipation - Time Spent With Patient Total time spent is greater than 50% in coordination of care (as documented) at patient's floor/unit and/or counseling patient: - Subjective Interval history: Pt subjectively asymptomatic today except for stable post-op pain. Denies being short of air at this time. Is saturating at 94% on room air. Still tachycardic at about 100bpm; has been predominately tachycardic throughout hospitalization. No acute complaints. Anxious for discharge. - Constitutional Vitals: Temp Pulse Resp BP Pulse Ox 98.9 F 103 14 100/63 92 10/25/17 04:29 10/25/17 04:29 10/25/17 04:29 10/25/17 04:29 10/25/17 04:29 CONSTITUTIONAL: Alert and oriented X3, well-nourished, well appearing, in no apparent distress HEAD: Normocephalic; atraumatic. EYES: PERRL, no scleral icterus, no drainage, no conjunctival injection NOSE: The nose is normal in appearance without rhinorrhea Oropharynx: pink/moist, no tonsillar edema/erythema/exudates RESP: NRD without use of accessory musculature, speaks full sentences with no interruptions, does have wheezes throughout lung womack, no rales/rhonchi CARD: Regular rhythm, pulse rate manually checked and is approximately 100 beats per minute, heart sounds without murmurs, rubs, or gallop ABD: grossly normal, soft, non-tender, no guarding/distention/rigidity SKIN: normal appearance, no pallor/diaphoresis,mottling,jaundice,cyanosis EXT: Rad pulses 2+ and symmetrical; no pedal edema, SCDs in place; no other lesions seen PSYCH: appropriate mood/affect Internal Medicine: Result - Labs CBC & Chem 7: 10/25/17 10:24 10/25/17 01:18 Labs: Short CBC 10/24/17 10/24/17 10/24/17 Range/Units 12:46 17:08 22:56 WBC 9.7 (4.3-11.1) K/mcL Hgb 10.2 L 9.4 L 8.6 L (11.5-15.4) g/dL Hct 29.6 L 27.5 L 24.5 L (35.3-44.9) % Plt Count 292 (140-400) K/mcL Neutrophils # 6.7 (1.6-8.9) K/mcL 10/25/17 Range/Units 01:18 WBC 7.6 (4.3-11.1) K/mcL Hgb 8.5 L (11.5-15.4) g/dL Hct 24.9 L (35.3-44.9) % Plt Count 269 (140-400) K/mcL Neutrophils # 4.7 (1.6-8.9) K/mcL BMP 10/24/17 10/25/17 12:46 01:18 Sodium 131 L 134 L Potassium 3.5 3.4 L Chloride 98 103 Carbon Dioxide 27 25 BUN 6 6 Creatinine 0.56 L 0.56 L Glucose 104 140 H Calcium 8.7 8.1 L Liver Function 10/25/17 Range/Units 01:18 Total Bilirubin 0.5 (0.3-1.0) mg/dL AST 20 (13-39) Units/L ALT 16 (7-52) Units/L Alkaline Phosphatase 84 (34-104) Units/L Albumin 3.0 L (3.5-5.7) g/dL Urine 10/24/17 Range/Units 17:59 Urine Color Yellow (Yellow) Urine Clarity Cloudy A (Clear) Urine pH 7.0 (5.0-8.0) pH Units Ur Specific [place] 1.010 (1.010-1.025) Urine Protein Negative (Neg-Trace) mg/dL Urine Glucose (UA) Normal (Normal) mg/dL - Impressions Impressions Lumbar Spine X-Ray 10/24/17 08:01 IMPRESSION: Stable alignment status post L3-L5 posterior fusion. No evidence of complication. D/ / Rainer Beck MD / Rainer Beck MD Interpreting Provider: Rainer Beck MD Chest X-Ray 10/24/17 11:53 IMPRESSION: Bibasilar airspace opacities, either secondary to atelectasis or pneumonia. D/ / Rainer Beck MD / Rainer Beck MD Interpreting Provider: Rainer Beck MD - VTE Documentation of Mechanical Device: Intermittent pneumatic compression device Consult Discharge Plan - Plan Referrals: Amina Quintanilla PAC [Physician Garment Sewer Hand] - 11/04/17 11:15 am Soheila Newell, PhD [Primary Care Provider] - Prescriptions: OxyCODONE Immed Rel [Roxicodone 5 MG] 5 mg PO Q6H PRN 7 Days #28 tablet PRN Reason: Severe Pain <Jaren Reeder - Last Filed: 10/25/17 15:31> Date of Encounter: 10/25/17 - Assessment and plan (1) Status post lumbar spinal fusion Current Visit: Yes Status: Acute (2) Fever Current Visit: Yes Status: Acute Qualifiers: Fever type: unspecified Qualified Code(s): R50.9 - Fever, unspecified (3) HTN (hypertension) Current Visit: Yes Status: Acute Qualifiers: Hypertension type: unspecified Qualified Code(s): I10 - Essential (primary ) hypertension (4) Tachycardia Current Visit: Yes Status: Acute (5) DVT prophylaxis Current Visit: Yes Status: Acute (6) Anemia Current Visit: Yes Status: Acute Qualifiers: Anemia type: unspecified type Qualified Code(s): D64.9 - Anemia, unspecified (7) Hyponatremia Current Visit: Yes Status: Acute (8) Overactive bladder Current Visit: Yes Status: Chronic (9) Anxiety and depression Current Visit: Yes Status: Chronic (10) COPD (chronic obstructive pulmonary disease) Current Visit: Yes Status: Chronic Qualifiers: COPD type: emphysema Emphysema type: unspecified Qualified Code(s): J43.9 - Emphysema, unspecified (11) Constipation Current Visit: Yes Status: Acute Qualifiers: Constipation type: drug induced constipation Qualified Code(s): K59.03 - Drug induced constipation - Time Spent With Patient Total time spent is greater than 50% in coordination of care (as documented) at patient's floor/unit and/or counseling patient: - Constitutional Vitals: Temp Pulse Resp BP Pulse Ox 99.0 F 116 16 101/67 94 10/25/17 11:32 10/25/17 11:32 10/25/17 11:32 10/25/17 11:32 10/25/17 11:32 Internal Medicine: Result - Labs CBC & Chem 7: 10/25/17 10:24 10/25/17 01:18 Labs: Short CBC 10/24/17 10/24/17 10/25/17 Range/Units 17:08 22:56 01:18 WBC 7.6 (4.3-11.1) K/mcL Hgb 9.4 L 8.6 L 8.5 L (11.5-15.4) g/dL Hct 27.5 L 24.5 L 24.9 L (35.3-44.9) % Plt Count 269 (140-400) K/mcL Neutrophils # 4.7 (1.6-8.9) K/mcL 10/25/17 Range/Units 10:24 WBC 7.8 (4.3-11.1) K/mcL Hgb 8.8 L (11.5-15.4) g/dL Hct 26.5 L (35.3-44.9) % Plt Count 303 (140-400) K/mcL Neutrophils # 4.7 (1.6-8.9) K/mcL BMP 10/25/17 01:18 Sodium 134 L Potassium 3.4 L Chloride 103 Carbon Dioxide 25 BUN 6 Creatinine 0.56 L Glucose 140 H Calcium 8.1 L Liver Function 10/25/17 Range/Units 01:18 Total Bilirubin 0.5 (0.3-1.0) mg/dL AST 20 (13-39) Units/L ALT 16 (7-52) Units/L Alkaline Phosphatase 84 (34-104) Units/L Albumin 3.0 L (3.5-5.7) g/dL Urine 10/24/17 Range/Units 17:59 Urine Color Yellow (Yellow) Urine Clarity Cloudy A (Clear) Urine pH 7.0 (5.0-8.0) pH Units Ur Specific [place] 1.010 (1.010-1.025) Urine Protein Negative (Neg-Trace) mg/dL Urine Glucose (UA) Normal (Normal) mg/dL - Attending Attestation acute COPD exacerbation 2ry to acute bacterial bronchitis continue prednisone and start azithromycin check CTA ( still tachycardic) not moving much since surgery tobacco abuse smoking cessation counseling I examined this patient and my medical decision-making was reviewed with the Resident Physician. I agree with the documented findings, disposition and treatment plan as described except to the extent set forth below.
[2017-10-25] MEDS ORDERED: (Mirabegron [Myrbetriq] 50 MG) PO SCH (09:00)
[2017-10-25 09:15] LABS: Thyroid Stimulating Hormone 0.891 mcIU/mL (0.340-5.600)
[2017-10-25] MEDS ORDERED: Ipratropium/Albuterol Neb 3 ML IH ONE (10:18)
[2017-10-25] MEDS ORDERED: predniSONE 20 MG TABLET PO SCH (10:30)
[2017-10-25 11:31] LABS: Basophils % 0.3 %; Eosinophils # 0.4 K/mcL (0.0-0.6); Eosinophils % 4.7 %; Hematocrit 26.5 % (35.3-44.9); Hemoglobin 8.8 g/dL (11.5-15.4); Immature Granulocytes % 0.4 % (0-4); Lymphocytes # 1.6 K/mcL (0.6-4.6); Lymphocytes % 20.8 %; Mean Corpuscular HGB Conc 33.2 g/dL (31.6-35.5); Mean Corpuscular Hemoglobin 29.8 pg (28.0-33.3); Mean Corpuscular Volume 89.8 fL (83.0-100.0); Mean Platelet Volume 10.4 fL (9.4-12.4); Monocytes % 13.4 %; Neutrophils # 4.7 K/mcL (1.6-8.9); Platelet Count 303 K/mcL (140-400); Red Blood Count 2.95 M/mcL (3.82-4.97); Red Cell Distribution Width 14.5 % (11.5-14.5); Segmented Neutrophils % 60.4 %
--- NOTE | 2017-10-25 11:37 | Orthopedics Progress Note ---
Date of Encounter: 10/25/17 Time of Encounter: 11:35 Subjective Principal diagnosis: Lumbar stenosis, degenerative scoliosis, lumbar radiculopathy Interval history: Doing well this AM. No SOB or CP on room air. Denies fevers or chills AFVSS GEN - NAD Dress c/d/i DNVI with right side ankle DF weakness, otherwise, neurovascularly intact with regard to bilateral lower extremities. Fires all upper and lower extremity motor groups. A/P: Stable this AM Continue PT for mobilization D/c home with home health Objective Vital signs: Vital Signs Temp Pulse Resp BP Pulse Ox 10/25/17 11:32 99.0 F 116 16 101/67 94 10/25/17 11:03 99.0 F 116 18 96/62 94 10/25/17 08:55 16 92 10/25/17 04:29 98.9 F 103 14 100/63 92 10/25/17 00:52 99.5 F 115 14 101/60 91 10/24/17 21:40 99.5 F 112 16 105/69 91 10/24/17 20:58 17 92 10/24/17 16:18 99.9 F H 109 18 106/67 93 Intake and Output 10/24/17 10/25/17 10/25/17 23:59 07:59 15:59 Intake Total 360 / 360 1400 / 1400 240 / 240 Balance 360 / 360 1400 / 1400 240 / 240 Intake: IV Fluids 1000 / 1000 0.9 % Sodium Chloride 1,000 ML 1000 / 1000 @ 75 mls/hr IVC .[id number] Rx #:[id number] Oral 360 / 360 400 / 400 240 / 240 Other: Meal Breakfast Percent of Meal Consumed 30% # Voids 1 Weight 66.7 kg Patient Weight 10/25/17 23:59 Weight 66.7 kg - Labs CBC & BMP: 10/25/17 10:24 10/25/17 01:18 Labs: Abnormal lab results RBC 2.95 M/mcL (3.82-4.97) L 10/25/17 10:24 Hgb 8.8 g/dL (11.5-15.4) L 10/25/17 10:24 Hct 26.5 % (35.3-44.9) L 10/25/17 10:24 Sodium 134 mEq/L (136-145) L 10/25/17 01:18 Potassium 3.4 mEq/L (3.5-5.1) L 10/25/17 01:18 Creatinine 0.56 mg/dL (0.60-1.20) L 10/25/17 01:18 Glucose 140 mg/dL (70-105) H 10/25/17 01:18 Calculated Osmolality 278 (280-300) L 10/25/17 01:18 Calcium 8.1 mg/dL (8.6-10.3) L 10/25/17 01:18 Serum Total Protein 5.3 g/dL (6.4-8.9) L 10/25/17 01:18 Albumin 3.0 g/dL (3.5-5.7) L 10/25/17 01:18 Globulin 2.3 g/dL (2.4-3.5) L 10/25/17 01:18 Urine Clarity Cloudy (Clear) A 10/24/17 17:59 Urine Ketones 15 mg/dL (Negative) H 10/24/17 17:59 Urine Microscopic RBC 3-5 per hpf (0-3) H 10/24/17 17:59 Ur Squamous Epith Cells Moderate per lpf (None-Few) H 10/24/17 17:59 - VTE Documentation of Mechanical Device: Intermittent pneumatic compression device Consult Discharge Plan - Plan Referrals: Amina Quintanilla, PAC [Physician Flight Information Expediter] - 11/04/17 11:15 am Soheila Newell, PhD [Primary Care Provider] - Prescriptions: OxyCODONE Immed Rel [Roxicodone 5 MG] 5 mg PO Q6H PRN 7 Days #28 tablet PRN Reason: Severe Pain
[2017-10-25] MEDS: ALPRAZolam 1 MG TABLET PO PRN (11:54)
[2017-10-25] MEDS ORDERED: Isovue-370 500 ML INFUS..BTL IV ONE (15:13)
[2017-10-25] MEDS ORDERED: Azithromycin 250 MG TABLET PO ONE (15:31)
[2017-10-25] MEDS ORDERED: Ipratropium/Albuterol Neb 3 ML IH SCH (16:00)
--- NOTE | 2017-10-25 16:25 | Event Note ---
Date of Encounter: 10/25/17 Time of Encounter: 16:23 Did CTA to address possible PE as etiology of patient's tachycardia and elevated temperature. CTA negative for PE or any consolidative process. Did show atelectasis. Patient's acute shortness of breath is most likely due to acute exacerbation of COPD as evidenced by wheezing on exam and productive cough. Respiratory infection panel was negative. Discharging patient with total of 5 days of prednisone including 1st dose that was given today as well as total 5 days of a azithromycin. Plan discussed with patient and return precautions given; patient expresses understanding and has no questions. Other discharge instructions per ortho team.
[2017-10-25 16:36] VITALS: BP 137/84
[2017-10-26] MEDS ORDERED: Azithromycin 250 MG TABLET PO SCH (09:00)
--- NOTE | 2017-10-29 12:16 | Electrocardiograph Report ---
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
== END 2017-10-25 19:17 | disposition home health service (06) | DRG 460 ==
LOC: SAMDAY 06:17 → 3NENU 13:42
PROVIDERS: ADMIT Orthopaedic Surgery Orthopaedic Surgery of the Spine; ATTEND Orthopaedic Surgery Orthopaedic Surgery of the Spine